=== PATIENT | male | born 1945 | race Caucasian/White ===

== ENCOUNTER 2024-01-15 13:11 | Emergency (ER) | payer MEDICARE, OTHER ==
[~2024-01-15] VITALS: Ht 165.1 cm; Wt 55.0 kg
[~2024-01-15 13:11] MED LIST: AMLO5TAB PO; ASPI81CT51 PO; ATOR20TA40 PO; CARV25TA2 PO; CEFD300C3 PO; DOCU-299 PO; FURO20TA8 PO
[2024-01-15 13:21] VITALS: BP 110/36; PULSE 60; RESP 17; TEMP 97.8; O2SAT 98
[2024-01-15 15:22] VITALS: BP 112/42; PULSE 66; RESP 17; TEMP 97.8; O2SAT 98
== END 2024-01-15 15:22 | disposition home or self-care (01) ==
LOC: MED 13:11
DX: Z46.6 Encounter for fitting and adjustment of urinary device (principal); Z87.440 Personal history of urinary (tract) infections; I10 Essential (primary) hypertension; I25.2 Old myocardial infarction; I25.10 Atherosclerotic heart disease of native coronary artery without angina pectoris; F03.90 Unspecified dementia, unspecified severity, without behavioral disturbance, psychotic disturbance, mood disturbance, and anxiety; Z86.73 Personal history of transient ischemic attack (TIA), and cerebral infarction without residual deficits; Z95.1 Presence of aortocoronary bypass graft; Z98.890 Other specified postprocedural states; Z85.528 Personal history of other malignant neoplasm of kidney; Z90.5 Acquired absence of kidney; Z79.899 Other long term (current) drug therapy; Z79.82 Long term (current) use of aspirin; Z88.0 Allergy status to penicillin
CPT/HCPCS: 87086; 99283